=== PATIENT | female | born 1950 | race Caucasian/White ===

== ENCOUNTER 2021-09-01 10:05 | Day surgery (SDC) | payer MEDICARE ==
[~2021-09-01] VITALS: Ht 167.6 cm; Wt 65.6 kg
[2021-09-01] VITALS (10 sets, daily range): BP systolic 106–132; BP diastolic 60–82
[2021-09-01] MEDS ORDERED: LORazepam 0.5 MG tablet PO PRN (10:35)
[2021-09-01] MEDS ORDERED: LIDOcaine/PRILOcaine 5gm cream TP ONE (10:35)
[2021-09-01] MEDS ORDERED: normal saline 1,000 ML IV SCH (10:35)
[2021-09-01] MEDS ORDERED: diphenhydrAMINE 25mg capsule PO PRN (10:35)
[2021-09-01] MEDS ORDERED: B12 (10:53)
[2021-09-01] MEDS ORDERED: AMIO100T4 PO (10:53)
[2021-09-01] MEDS ORDERED: LEVO88TA2 PO (10:53)
[2021-09-01] MEDS ORDERED: CIME400T11 PO (10:53)
[2021-09-01] MEDS ORDERED: AMIT25TA9 PO (10:53)
[2021-09-01] MEDS ORDERED: METO-384 (10:53)
[2021-09-01] MEDS ORDERED: DOCU-342 PO (10:53)
[2021-09-01] MEDS ORDERED: CHOL20003 (10:53)
[2021-09-01] MEDS ORDERED: ALPR-163 PO (10:53)
[2021-09-01] MEDS ORDERED: ASPI-1071 PO (10:55)
[2021-09-01] MEDS ORDERED: SENN-263 PO (10:55)
[2021-09-01] MEDS ORDERED: iohexol 350 MG/ML 50ML vial IV ONE ×2 (11:00→11:40)
[2021-09-01 11:05] LABS: BASOPHILS # (AUTO) 0.1 X10'3 (0-0.2); BASOPHILS % (AUTO) 1.4 % (0-1); EOSINOPHILS # (AUTO) 0.2 X10'3 (0-0.9); EOSINOPHILS % (AUTO) 4.8 % (0-6); HEMATOCRIT 41.3 % (35.0-45.0); HEMOGLOBIN 13.7 g/dl (12.0-16.0); LYMPHOCYTES # (AUTO) 1.5 X10'3 (1.1-4.8); MEAN CORPUSCULAR HEMOGLOBIN 28.6 PG (27.0-31.0); MEAN CORPUSCULAR HGB CONC 33.2 g/dL (33.0-36.5); MEAN CORPUSCULAR VOLUME 86.4 FL (78-98); MEAN PLATELET VOLUME 11.5 FL (7.4-10.4); MONOCYTES # (AUTO) 0.3 X10'3 (0-0.9); MONOCYTES % (AUTO) 5.6 % (2-12); NEUTROPHILS % (AUTO) 58.2 % (42-75); PLATELET COUNT 223 X10'3 (140-440); RED BLOOD COUNT 4.79 X10'6 (4.20-5.60); RED CELL DISTRIBUTION WIDTH 14.9 % (11.5-14.5); WHITE BLOOD COUNT 5.1 X10'3 (4.5-11.0)
[2021-09-01 11:09] LABS: ALBUMIN 4.4 G/DL (3.4-5.0); ANION GAP 7 (8-16); BLOOD UREA NITROGEN 9 MG/DL (7-18); BUN/CREATININE RATIO 11.5 (6.6-38.0); CALCIUM 10.4 MG/DL (8.5-10.1); CHLORIDE 103 MMOL/L (99-107); CREATININE 0.78 MG/DL (0.40-0.90); GLUCOSE 94 MG/DL (70-104); SODIUM 139 MMOL/L (135-145); TOTAL CARBON DIOXIDE 29.3 MMOL/L (24-32); eGFR 72 ML/MIN
[2021-09-01 11:10] LABS: APTT 25 SECONDS (22-32)
[2021-09-01] MEDS ORDERED: midazolam 1 mg/ML 2ml injection ONE (11:37)
[2021-09-01] MEDS ORDERED: fentaNYL/PF 50MCG/1 ML 2ML syringe ONE (11:37)
[2021-09-01] MEDS ORDERED: LIDOcaine 1% 30ml preserv. free vial ONE (11:38)
[2021-09-01] MEDS ORDERED: heparin 1,000unit/ml 10ml vial 10 ML ONE (11:38)
[2021-09-01] MEDS ORDERED: nitroGLYCERIN-Tridil 50MG/D5W 250 ML IV ONE (11:39)
[2021-09-01] MEDS ORDERED: verapamil 2.5 mg/ml inj IV ONE (11:40)
[2021-09-01] MEDS ORDERED: metoprolol tartrate 1mg/ml inj IV ONE (12:40)
[2021-09-01] MEDS ORDERED: adenosine 3mg/ml 2ml vial IV ONE (12:48)
== END 2021-09-01 17:50 | disposition home or self-care (01) ==
LOC: SSTAY O 10:05
PROVIDERS: ATTEND Internal Medicine Cardiovascular Disease
DX: R53.83 Other fatigue (principal); R06.02 Shortness of breath; I25.10 Atherosclerotic heart disease of native coronary artery without angina pectoris; I47.1 Supraventricular tachycardia; F41.9 Anxiety disorder, unspecified; G47.00 Insomnia, unspecified; K21.9 Gastro-esophageal reflux disease without esophagitis; E03.9 Hypothyroidism, unspecified; Z90.710 Acquired absence of both cervix and uterus; Z90.49 Acquired absence of other specified parts of digestive tract; Z98.890 Other specified postprocedural states; Z79.899 Other long term (current) drug therapy; Z79.82 Long term (current) use of aspirin; Z87.891 Personal history of nicotine dependence; Z88.5 Allergy status to narcotic agent; Z82.49 Family history of ischemic heart disease and other diseases of the circulatory system; Z81.8 Family history of other mental and behavioral disorders
CPT/HCPCS: 76937; 80048; 85025; 85610; 85730; 92960; 93005; 93458; 99152; C1760; C1769; C1894; J0153; J1644; J2250; J3010; J3490; J7030; Q0163; Q9967; 99153; A4620; A5120; A6258